=== PATIENT | female | born 1955 ===

== ENCOUNTER 2017-09-29 08:13 | Outpatient (CLI) | payer BC ==
--- NOTE | 2017-09-30 11:19 | Mammography Report ---
BILATERAL DIGITAL SCREENING MAMMOGRAM with CAD: 09/29/17 08:13:00 CLINICAL: Routine screening. COMPARISON:None available. FINDINGS: The breasts are heterogeneously dense, which may obscure small masses. No mass, architectural distortion or suspicious calcifications. IMPRESSION: No mammographic evidence of malignancy. BI-RADS CATEGORY: 1 - - Negative RECOMMENDATION: Routine mammographic screening in one year. COMMENT: Patient follow-up letters are generated by our [employer] application.
== END 2017-09-29 08:14 | disposition home or self-care (01) ==
LOC: SPVWC 08:13
PROVIDERS: ATTEND Family Medicine
DX: Z12.31 Encounter for screening mammogram for malignant neoplasm of breast (principal)
CPT/HCPCS: 77067